=== PATIENT | male | born 1990 | race Caucasian/White ===

== ENCOUNTER 2024-03-19 17:55 | Emergency (ER) | payer BC, SELFPAY ==
--- NOTE | ~2024-03-19 | XR_ITS ---
EXAMINATION: XR chest 2V DATE: 03/19/2024 18:38 INDICATION: Cough. TECHNIQUE: Frontal and lateral views of the chest were obtained. COMPARISON: None. FINDINGS: There is no pneumonia, pleural effusion, or pneumothorax. The heart size is normal. IMPRESSION: 1. No acute cardiopulmonary disease. Reviewed, dictated and finalized at location A.
[2024-03-19 18:08] VITALS: BP 120/85; PULSE 99; RESP 20; TEMP 37; O2SAT 94
--- NOTE | 2024-03-19 18:39 | ED.URI ---
HPI - URI/Sore Throat General Chief Complaint: Upper Respiratory Infection Stated Complaint: chest congestion Time Seen by Provider: 03/19/24 18:40 Source: patient Mode of arrival: ambulatory Limitations: no limitations History of Present Illness HPI Narrative: 33-year-old male with hx asthma presented for complaint of cough, chest congestion and tightness. Onset 1 week. started with sinus pressure today. Reports hearing wheezing at times and sob with exertion. Almost out of his albuterol inhaler. Denies n/v/d/f/c. Not taking anything otc for symptoms. Pt resides in [place], here for work. Related Data Home Medications Medication Instructions Recorded Confirmed albuterol sulfate 90 mcg/actuation 2 puff inhalation QID PRN 03/19/24 03/19/24 aerosol inhaler Shortness Of Breath Or Wheezing Allergies Allergy/AdvReac Type Severity Reaction Status Date / Time amoxicillin [From Augmentin] Allergy Unknown Unknown Verified 03/19/24 18:24 clavulanic acid Allergy Unknown Unknown Verified 03/19/24 18:24 [From Augmentin] Review of Systems Review of Systems: CONSTITUTIONAL: Denies body aches, fever, chills, or sweats. EYES: Denies visual changes, redness, or discharge. ENT: reports rhinorrhea, congestion, denies sore throat, or otalgia. CARDIOVASCULAR: Denies chest pain, palpitations, or edema. RESPIRATORY: Reports cough, sob, denies wheezing. GASTROINTESTINAL: Denies abdominal pain, nausea, vomiting, or diarrhea. MUSCULOSKELETAL: Denies back pain, joint pain, or myalgia. NEUROLOGIC: Denies headache, numbness, tingling, or weakness. All systems reviewed & are unremarkable except as noted in HPI and below [facility] Past Medical History Medical History (Updated 03/19/24 @ 19:16 by Vianey Bridges, DIONICIO) Asthma Comments At time of signature, I have reviewed and agree with nursing past medical, surgical, social and family history unless otherwise noted. Please see nursing chart for further information. There is no relevant family history pertinent to the presenting complaint Exam Narrative: GENERAL: Well-appearing, in no acute distress. EYES: EOMI. No redness or drainage. Conjunctivae normal. ENT: Mucous membranes pink and moist. No rhinorrhea. TMs normal bilaterally. Throat normal. Uvula midline. CHEST: No respiratory distress. faint expiratory wheeze right lung, otherwise clear HEART: Regular rate and rhythm. No murmur appreciated. ABDOMEN: Soft, nontender, nondistended, normal active bowel sounds. SKIN: Warm, dry, no rash. Capillary refill normal. Normal skin turgor. NEURO: Alert and oriented x3. Gait steady. Course Course Emergency Course: Patient is aware of diagnosis, understands and agrees to treatment plan. Anticipatory guidance given. Patient agrees to follow-up as directed and is aware of reasons to seek care at the emergency department. Portions of this record may have been created with voice recognition software Level of Care: Express Care Visit Vital Signs Vital signs: Vital Signs Temperature 98.6 F 03/19/24 18:08 Pulse Rate 99 03/19/24 18:08 Respiratory Rate 20 03/19/24 18:08 Blood Pressure 120/85 03/19/24 18:08 Pulse Oximetry 94 03/19/24 18:08 Oxygen Delivery Room Air 03/19/24 18:08 Temperature 98.6 F 03/19/24 18:08 Pulse Rate 99 03/19/24 18:08 Respiratory Rate 20 03/19/24 18:08 Blood Pressure 120/85 03/19/24 18:08 Pulse Oximetry 94 03/19/24 18:08 Oxygen Delivery Room Air 03/19/24 18:08 MDM - URI/Sore Throat MDM Narrative Medical decision making narrative: Discussed physical exam findings and x-ray. reviewed prescriptions.Advised supportive measures and signs/symptoms to go to the ER. Pt is appropriate for outpt treatment and f/u. Differential Diagnosis Differential diagnosis: Likely upper respiratory infection, sinusitis, viral infection, bronchitis and other Imaging Data Radiologist's impression: Patient: Kareem Hamlin
== END 2024-03-19 18:50 | disposition home or self-care (01) ==
PROVIDERS: Emergency Provider Nurse Practitioner Family
DX: J40 Bronchitis, not specified as acute or chronic (principal); J45.909 Unspecified asthma, uncomplicated
CPT/HCPCS: 71046; 99203; G0463